=== PATIENT | female | born 1960 | race American Indian/Alaskan Native ===

== ENCOUNTER 2017-04-28 11:34 | Emergency (ER) | payer MEDICAID ==
[2017-04-28] MEDS ORDERED: KEPPRA 1,000 MG/NS 0.75% 100ML 1,000 MG/100 ML BAG IV ONE (12:07)
--- NOTE | 2017-04-28 12:14 | Emergency Department Report ---
HPI - General Chief Complaint: Seizure Time Seen by Provider: 04/28/17 12:06 - HPI HPI: Room 6 The patient is a 56-year-old female presenting with a chief complaint of seizure. Patient is normally nonverbal per EMS. EMS reports patient had a seizure today at the [facility]. Staff reports patient had a seizure lasting approximately 1 minute in the ED quickly returned to her mental baseline. Patient currently denies complaints Location: [facility] Duration: 1 minute Quality: Generalized tonic-clonic Severity: Moderate Modifying factors: [see above] Context: [see above] Mode of transportation: [not driving] ED Past Medical Hx - Past Medical History Previous Medical History?: Yes Hx CVA: Yes Hx Diabetes: Yes Hx GERD: Yes Hx Seizures: Yes - Surgical History Past Surgical History?: No - Family History Family history: no significant - Social History Smoking Status: Unknown if ever smoked - Medications Home Medications: Home Medications Medication Instructions Recorded Confirmed Last Taken Type Calcium Carbonate [Oscal] 1 tab PO DAILY 03/15/13 03/15/13 03/19/13 History Docusate Sodium [Colace CAP] 1 tab PO BID 03/15/13 03/15/13 03/19/13 History Folic Acid 1 tab PO DAILY 03/15/13 03/15/13 03/19/13 History Oxybutynin [Ditropan] 1 tab PO BID 03/15/13 03/15/13 03/19/13 History Quetiapine Fumarate [SEROquel] 1 tab PO HS 03/15/13 03/15/13 03/19/13 History Ranitidine HCl [Ranitidine 150mg 1 tab PO BID 03/15/13 03/15/13 03/19/13 History Cap] levETIRAcetam [Keppra TAB] 1 tab PO BID 03/15/13 03/15/13 03/20/13 History ED Review of Systems ROS: Stated complaint: SEIZURE Other details as noted in HPI Comment: Unobtainable due to pts medical conditions Physical Exam - Physical Exam Vital Signs: Vital Signs 04/28/17 11:53 Temperature 98.3 F Pulse Rate 94 H Respiratory 18 Rate Blood Pressure 131/84 O2 Sat by Pulse 97 Oximetry Physical Exam: GENERAL: The patient is well-developed well-nourished female lying on stretcher under covers not appearing to be in acute distress. Patient awakens easily to verbal and tactile stimuli HEENT: Normocephalic. Atraumatic. Extraocular motions are intact. Patient has moist mucous membranes. NECK: Supple. Trachea midline. No nuchal rigidity CHEST/LUNGS: Clear to auscultation. There is no respiratory distress noted. HEART/CARDIOVASCULAR: Regular. There is no tachycardia. There is no gallop rub or murmur. SKIN: There is no rash. There is no edema. There is no diaphoresis. NEURO: The patient is awake and alert. The patient is cooperative. MUSCULOSKELETAL: There is no evidence of acute injury. ED Course Vital Signs 04/28/17 11:53 Temperature 98.3 F Pulse Rate 94 H Respiratory 18 Rate Blood Pressure 131/84 O2 Sat by Pulse 97 Oximetry ED Medical Decision Making - Lab Data Result diagrams: 04/28/17 13:45 04/28/17 13:45 Laboratory Tests 04/28/17 04/28/17 13:45 13:45 WBC 4.5 RBC 3.72 Hgb 12.7 Hct 36.6 MCV 99 H MCH 34 H MCHC 35 H RDW 13.1 L Plt Count 163 Lymph % (Auto) 17.3 [place] % (Auto) 3.4 Eos % (Auto) 0.2 Baso % (Auto) 0.3 Lymph # 0.8 L [place] # 0.2 Eos # 0.0 Baso # 0.0 Seg Neutrophils % 78.8 H Seg Neutrophils # 3.5 Sodium 137 Potassium 4.4 Chloride 97.5 L Carbon Dioxide 28 Anion Gap 16 BUN 15 Creatinine 0.8 Estimated GFR > 60 BUN/Creatinine Ratio 19 Glucose 112 H Calcium 9.2 Magnesium 1.70 - Differential Diagnosis seizure disorder, hypomagnesemia, electrolyte imbalance Critical care attestation.: If time is entered above; I have spent that time in minutes in the direct care of this critically ill patient, excluding procedure time. ED Disposition Clinical Impression: Seizure Disposition: [id number] TO HOME OR SELFCARE Is pt being admited?: No Does the pt Need Aspirin: No Condition: Stable Instructions: Epilepsy (ED) Additional Instructions: Return to the emergency department immediately should you develop worsening symptoms, fever, inability to tolerate food or liquid or any other concerns. Referrals: PRIMARY CARE, [Primary Care Provider] - 3-5 Days Time of Disposition: 14:25
[2017-04-28 13:58] LABS: Basophils % (Auto) 0.3 % (0.0-1.8); Eosinophils % (Auto) 0.2 % (0.0-4.3); Hematocrit 36.6 % (30.3-42.9); Hemoglobin 12.7 gm/dl (10.1-14.3); Lymphocytes # (Auto) 0.8 K/mm3 (1.2-5.4); Lymphocytes % (Auto) 17.3 % (13.4-35.0); Mean Corpuscular HGB Conc 35 % (30-34); Mean Corpuscular Hemoglobin 34 pg (28-32); Mean Corpuscular Volume 99 fl (79-97); Monocytes # (Auto) 0.2 K/mm3 (0.0-0.8); Monocytes % (Auto) 3.4 % (0.0-7.3); Platelet Count 163 K/mm3 (140-440); Red Blood Count 3.72 M/mm3 (3.65-5.03); Red Cell Distribution Width 13.1 % (13.2-15.2)
[2017-04-28 14:13] LABS: BUN/Creatinine Ratio 19; Blood Urea Nitrogen 15 mg/dL (7-17); Calcium 9.2 mg/dL (8.4-10.2); Hemolysis Index 12
--- NOTE | 2017-04-28 15:53 | Cat Scan Report ---
FINAL REPORT PROCEDURE: CT HEAD/BRAIN WO CON TECHNIQUE: Computerized tomography of the head was performed without contrast material. DLP 1431.36. HISTORY: Seizure. Fall. Epilepsy. COMPARISON: CT scan dated 04/28/2017. FINDINGS: Skull and scalp: Metallic density/BB in the subcutaneous tissues about the right sphenoid bone. Paranasal sinuses: Normal. Ventricles and subarachnoid spaces: Normal. Cerebrum: No evidence of hemorrhage, acute infarction or mass. Atrophy. Moderate patchy periventricular white matter low-attenuation. Bilateral left greater than right moderate low-attenuation about the sylvian fissures as on prior study. Stable low-attenuation in the left basal ganglia. Cerebellum and brainstem: Moderate patchy low attenuation in the bilateral cerebellar hemispheres and left cerebellar vermis unchanged. Vasculature: Normal. Comments: None. IMPRESSION: Areas of atrophy, encephalomalacia, and white matter change throughout the cerebrum and cerebellum. Findings appear unchanged compared to the prior exam. Consider further evaluation and followup if there is concern for subtle superimposed acute process.
[2017-04-28 16:41] VITALS: BP 128/76
== END 2017-04-28 16:36 | disposition home or self-care (01) ==
LOC: ED 11:34
DX: R56.9 Unspecified convulsions (principal); Z86.73 Personal history of transient ischemic attack (TIA), and cerebral infarction without residual deficits; K21.9 Gastro-esophageal reflux disease without esophagitis
CPT/HCPCS: 36415; 70450; 80048; 83735; 85025; 96374; 99284; J1953

== ENCOUNTER 2017-06-19 09:38 | Outpatient (CLI) | payer MEDICAID ==
[2017-06-19 10:15] LABS: Hematocrit 41.8 % (30.3-42.9); Hemoglobin 13.9 gm/dl (10.1-14.3); Mean Corpuscular HGB Conc 33 % (30-34); Mean Corpuscular Hemoglobin 33 pg (28-32); Mean Corpuscular Volume 99 fl (79-97); Platelet Count 190 K/mm3 (140-440); Red Blood Count 4.24 M/mm3 (3.65-5.03); Red Cell Distribution Width 13.3 % (13.2-15.2)
[2017-06-19 10:41] LABS: Alanine Aminotransferase 11 units/L (7-56); Albumin 4.4 g/dL (3.9-5); BUN/Creatinine Ratio 16; Blood Urea Nitrogen 14 mg/dL (7-17); Calcium 9.9 mg/dL (8.4-10.2); Hemolysis Index 15
== END 2017-06-19 09:39 | disposition home or self-care (01) ==
LOC: LAB 09:38
PROVIDERS: ATTEND Specialist
DX: G40.211 Localization-related (focal) (partial) symptomatic epilepsy and epileptic syndromes with complex partial seizures, intractable, with status epilepticus (principal); K21.9 Gastro-esophageal reflux disease without esophagitis
CPT/HCPCS: 36415; 80053; 80175; 85027

== ENCOUNTER 2017-12-11 08:48 | Outpatient (CLI) | payer MEDICAID | END 2017-12-11 08:49 | disposition home or self-care (01) | LOC: LAB 08:48 | PROVIDERS: ATTEND Specialist | DX: G40.211 Localization-related (focal) (partial) symptomatic epilepsy and epileptic syndromes with complex partial seizures, intractable, with status epilepticus (principal); K21.9 Gastro-esophageal reflux disease without esophagitis; E11.9 Type 2 diabetes mellitus without complications; Z90.710 Acquired absence of both cervix and uterus; Z86.73 Personal history of transient ischemic attack (TIA), and cerebral infarction without residual deficits | CPT/HCPCS: 36415; 82607; 82747; 83921 ==